=== PATIENT | female | born 1955 | race Caucasian/White ===

== ENCOUNTER 2021-09-28 18:10 | Inpatient (IN) | payer OTHER, MEDICARE, SELFPAY ==
[2021-09-28 17:36] VITALS: BP 145/81; PULSE 74; RESP 16; TEMP 37.1; O2SAT 96; BMI 43.6
[2021-09-28 18:03] VITALS: PULSE 68
--- NOTE | 2021-09-28 18:15 | HP.PCM.HOS_ITS ---
HPI - General General Date of Admission: 09/28/21 Date of Service: 09/28/21 Chief Complaint: Chest pain HPI Narrative RABIA BRISENO, is a 66 F who presents with several week history of intermittent chest pain. Chest pain is midsternal and then goes up and down her sternum. May radiate to her back as well. No diaphoresis but does feel hot when this happens. No shortness of breath. Patient presented to an outside hospital and she did receive nitroglycerin which did help alleviate her chest pain. Patient has never had chest pain like this before. Patient was transferred here for further cardiac evaluation [facility] Medical History (Updated 09/28/21 @ 18:[address] Lokesh Broussard, DO) Anxiety CPAP (continuous positive airway pressure) dependence Depression DVT (deep venous thrombosis) Factor V deficiency Former smoker GERD (gastroesophageal reflux disease) Migraines Mitral valve prolapse Sleep apnea Home Medications apixaban 5 mg tablet (Eliquis) 5 mg PO BID 09/28/21 [History Last Taken 09/28/21] calcium carbonate 600 mg-vitamin D3 5 mcg (200 unit) tablet 1 tab PO DAILY 09/28/21 [History Last Taken Unknown] carvedilol 3.125 mg tablet 3.125 mg PO BID 09/28/21 [History Last Taken 09/28/21] celecoxib 200 mg capsule (Celebrex) 200 mg PO DAILY 09/28/21 [History Last Taken 09/28/21] doxepin 150 mg capsule 150 mg PO QHS 09/28/21 [History Last Taken Unknown] multivitamin 1 tab PO DAILY 09/28/21 [History Last Taken Unknown] omeprazole 40 mg capsule,delayed release 40 mg PO DAILY 09/28/21 [History Last Taken 09/28/21] sertraline 50 mg tablet 50 mg PO DAILY 09/28/21 [History Last Taken 09/28/21] sucralfate 1 gram tablet 1 g PO BID PRN PRN Heartburn 09/28/21 [History Last Taken 09/28/21] tolterodine 4 mg capsule,extended release 24 hr 4 mg PO DAILY 09/28/21 [History Last Taken 09/28/21] Allergy/AdvReac Type Severity Reaction Status Date / Time bupropion [From Wellbutrin] Allergy Hives Verified 09/28/21 18:03 codeine Allergy Nausea Verified 09/28/21 18:03 moxifloxacin [From Avelox] Allergy Hives Verified 09/28/21 18:03 shrimp Allergy Hives Verified 09/28/21 18:03 Family History (Updated 09/28/21 @ 18:[address] Lokesh Broussard DO) Other CAD (coronary artery disease) Surgical History History of appendectomy History of cholecystectomy Social History Smoking Status: Former smoker [place] Narrative Has chronic right lower extremity edema due to history of DVT in that leg. All review of systems were negative except as mentioned above in the history of present illness and the other review of systems. Vital Signs Vital Signs Vital Signs: 09/28/21 17:36 09/28/21 18:03 Temperature 37.1 C Temperature Source Oral Pulse Rate 74 68 Respiratory Rate 16 Blood Pressure 145/81 H Blood Pressure Mean 102 Blood Pressure Source Monitor Blood Pressure Position Sitting Blood Pressure Location Right Arm Pulse Ox 96 Oxygen Delivery Method Room Air Weight Weight: 115.212 kg Body Mass Index (BMI) 43.6 Physical Exam Const alert and no apparent distress Resp normal respiratory effort, no retractions, no use of accessory muscles and clear to auscultation bilaterally Cardio regular rate, regular rhythm, S1 normal heart sound and S2 normal heart sound GI normal to inspection, nondistended, normoactive bowel sounds, soft to palpation, non-tender and non-distended Extremity Extremity Narrative: Trace right lower extremity edema Psych affect normal Results Lab / Micro Data Attestation: I reviewed the patient's lab results. Lab results narrative: At outside hospital: Troponin was negative, D-dimer was negative, INR was 1.1, chest x-ray results showed no consolidation, effusion, edema or pneumothorax. Heart size within normal limits. COVID-19 was negative. CBC showed white cells of 8.2, hemoglobin 11.8 platelets 197 CMP: Sodium 141, potassium 3.9, creatinine 0.74 BNP was 71 EKG Initial EKG: Attestation: I personally reviewed and interpreted this EKG as follows: Prior EKG tracings: available for review EKG Rhythm Intrepretation: Sinus Rhythm (Normal sinus rhythm with no acute process.) Follow-up EKG: Attestation: I personally reviewed and interpreted this EKG as follows: Prior EKG tracings: available for review EKG Rhythm Intrepretation: Sinus Rhythm (Normal sinus rhythm with no acute process.) Assessment & Plan Assessment/Plan (1) Chest pain: PLAN: Atypical but heart score is 5 Etiologies include cardiac versus musculoskeletal versus GI. Plan: * Will give her aspirin * Cycle troponins * stress test in the morning PLAN: Plan Chronic conditions * DVT/factor V Leiden deficiency: Continue with apixaban * Depression: Continue with doxepin and sertraline * GERD: Continue with omeprazole and sucralfate VTE prophylaxis: Not indicated as patient is already anticoagulated and this is observation. Case discussed with the patient's at bedside. Charges/Coding Visit Charges OBSV E&M: 30382 Initial observation care L2
[2021-09-28 18:16] VITALS: PULSE 66
[2021-09-28 19:00] VITALS: PULSE 75
--- NOTE | 2021-09-28 19:19 | EKG12_ITS ---
Test Reason : AM EKG Blood Pressure : / mmHG Vent. Rate : 060 BPM Atrial Rate : 060 BPM P-R Int : 148 ms QRS Dur : 082 ms QT Int : 424 ms P-R-T Axes : 047 -07 022 degrees QTc Int : 424 ms Normal sinus rhythm Normal ECG Confirmed by YOLETTE TEAGUE, PAMELA ([id number]), clinical editor YOSELYN ALLAN ([id number]) on 10/02/2021 1:03:15 PM Referred By: BRYCE Confirmed By:PAMELA DE LA VEGA MD
[2021-09-28 20:18] LABS: Troponin-I HS 16 pg/mL (3.0-54.0)
[2021-09-28] MEDS: Aspirin 81 MG TAB.CHEW 324 MG PO (20:59)
[2021-09-28 21:00] VITALS: BP 132/69; PULSE 67; RESP 12; TEMP 36.5; O2SAT 97
[2021-09-28] MEDS: DOXEPIN HCL 50 MG CAPSULE 150 MG PO (21:00)
[2021-09-28] MEDS: APIXABAN 5 MG TABLET PO (21:00)
[2021-09-28] MEDS: Carvedilol 3.125 MG TABLET PO (21:00)
[2021-09-28 22:09] LABS: Troponin-I HS 16 pg/mL (3.0-54.0)
[2021-09-29] VITALS (9 sets, daily range): BP systolic 113–138; BP diastolic 50–72; PULSE 58–71; RESP 16–20; TEMP 36.2–36.7; O2SAT 95–98
[2021-09-29 01:33] LABS: Troponin-I HS 16 pg/mL (3.0-54.0)
--- NOTE | 2021-09-29 05:55 | EKG12_ITS ---
Test Reason : cp Blood Pressure : / mmHG Vent. Rate : 067 BPM Atrial Rate : 067 BPM P-R Int : 138 ms QRS Dur : 088 ms QT Int : 404 ms P-R-T Axes : 109 184 132 degrees QTc Int : 426 ms Suspect arm lead reversal, interpretation assumes no reversal Possible Normal sinus rhythm Abnormal ECG Consider repeat ECG Confirmed by YOLETTE TEAGUE, PAMELA ([id number]), writer editor YOSELYN ALLAN ([id number]) on 10/02/2021 1:04:22 PM Referred By: Kian Confirmed By:PAMELA DE LA VEGA MD
[2021-09-29] MEDS: Aspirin E.C. 81 MG Tablet PO (06:23)
[2021-09-29] MEDS: APIXABAN 5 MG TABLET PO (10:29)
[2021-09-29] MEDS: Celecoxib 200 MG Capsule PO (10:29)
[2021-09-29] MEDS: Pantoprazole Sodium 40 MG Tablet PO (10:29)
[2021-09-29] MEDS: Tolterodine Tartrate 4 MG CAP.SA PO (10:29)
[2021-09-29] MEDS: Acetaminophen 325 MG Tablet 650 MG PO (10:29)
[2021-09-29] MEDS: Carvedilol 3.125 MG TABLET PO ×2 (10:29→21:21)
[2021-09-29] MEDS: Sertraline 50 MG Tablet PO (10:29)
--- NOTE | 2021-09-29 11:07 | STRESSREP_ITS ---
Stress Test Report Pharmacologic /Lexiscan myocardial perfusion stress test. Indication; 66-year-old patient who presented with several week history of intermittent chest pain Chest pain is midsternal radiating to the neck As well as to the back No other associated symptoms reported. Patient known to have history of mitral valve prolapse, migraine, GERD former smoker and had a history of factor V deficiency Also known to have history of COPD on CPAP. Based on clinical presentation patient underwent Lexiscan sestamibi myocardial fusion study. Stress protocol: Resting EKG demonstrates. Normal sinus rhythm. 0.4 mg of regadenoson was infused per usual protocol followed by rapid intravenous saline flush injection continuous EKG monitoring was performed. The maximum heart rate attained was 83 bpm which was 53% of maximum predicted heart . Stress EKG showed[, no significant change from the resting EKG, with maximum heart rate of 83 bpm. Arrhythmia: No arrhythmia demonstrated Symptoms: Patient had no symptoms of chest pain Blood pressure at rest: 134/78 mmHg blood pressure at the end of stress: 134/78 mmHg Myocardial perfusion protocol. 13.8 mCi ]of Technetium 99m Sestamibi was injected at rest. [ 0.4 mg ]of Regadenoson was infused per usual protocol peak infusion 42.2 mCi ]of Technetium 99m sestamibi was injected. Stress images were obtained stress and rest images were reconstructed and compared in the short axis vertical and horizontal long axis. Gated images were also obtained Perfusion SPECT analysis: Review of the images demonstrate reduced tracer uptake was noted in the anterior and apical region, small to moderate size Is consistent with reversible anteroapical ischemia. 66-year-old patient who presented with symptoms of intermittent chest pain, described as midsternal The gated ejection fraction is 80%. LV wall motion showed hyperdynamic left ventricle. Conclusion: Abnormal Lexiscan sestamibi myocardial fusion study with anteroapical small to moderate size reversible ischemia Hyperdynamic left ventricle No prior study to compare. Fidel Winchester MD,FACC,[facility]
--- NOTE | 2021-09-29 11:57 | PN.HOSP_ITS ---
Subjective Subjective No events overnight. No further chest pain. Objective Data Objective Data Vital Signs: Vital Signs Temp Pulse Resp BP Pulse Ox O2 Del Method 36.3 C L 66 16 137/65 H 98 Room Air 09/29/21 10:09/29/21 10:09/29/21 10:09/29/21 10:09/29/21 10:09/29/21 10:22 Oxygen Delivery Method Room Air Weight: 115.212 kg Body Mass Index (BMI) 43.6 Lab / Micro Data Labs: Laboratory Results - last 24 hr 09/28/21 19:25: Troponin I High Sens 16 09/28/21 21:20: Troponin I High Sens 16 09/29/21 01:00: Troponin I High Sens 16 Physical Exam Const alert and no apparent distress Resp normal respiratory effort, no retractions, no use of accessory muscles and clear to auscultation bilaterally Cardio regular rate, regular rhythm, S1 normal heart sound and S2 normal heart sound GI normal to inspection, nondistended, normoactive bowel sounds, soft to palpation and non-tender Assessment & Plan Assessment/Plan (1) Chest pain: PLAN: Stress test was abnormal. Discussed with Dr. Winchester and the plan will be to get a cardiac catheterization on the Plan: * Continue with aspirin * Cardiac catheterization on the * Check FLP in AM PLAN: Plan Chronic conditions * DVT/factor V Leiden deficiency: Continue with apixaban * Depression: Continue with doxepin and sertraline * GERD: Continue with omeprazole and sucralfate VTE prophylaxis: Not indicated as patient is already anticoagulated and this is observation. Case discussed with the patient's at bedside. Charges/Coding Visit Charges OBSV E&M: 93720 Subsequent observation care L2
--- NOTE | 2021-09-29 13:21 | CON.PCM.CA_ITS ---
Assessment & Plan Assessment/Plan (1) Stable angina: (2) Abnormal nuclear stress test: PLAN: 66-year-old patient who was admitted with symptoms of chest pain Patient was transferred from [place] with chest pain for evaluation he had [facility] Which she underwent a stress test Patient had family history of CAD, she is a former smoker Patient had a history of factor V deficiency with a DVT and she has been on Eliquis 5 mg twice daily. Cardiac care plan recommendations; 1. Patient has abnormal nuclear stress test with anteroapical small to moderate reversible ischemia And preserved LV systolic function 2. To hold Eliquis for at least 48-hour I discussed the need of further evaluation by cardiac cath as she had significant family history of CAD post parent had CAD and patient had recurrent episode of chest pain and a former smoker with multiple other medical problem risk factor V deficiency. 3. Echocardiogram to evaluate LV systolic function which can be set up on Friday. HPI Consult Data Date of Consult: 09/29/21 HPI Narrative Reason for Consultation: Stable angina with positive stress test HPI Narrative: RABIA BRISENO, is a 66 F who presents [facility] Medical History (Updated 09/29/21 @ 13:[address] Fidel Winchester MD) Anxiety CPAP (continuous positive airway pressure) dependence Depression DVT (deep venous thrombosis) Factor V deficiency Former smoker GERD (gastroesophageal reflux disease) Migraines Mitral valve prolapse Sleep apnea Home Medications apixaban 5 mg tablet (Eliquis) 5 mg PO BID 09/28/21 [History Last Taken 09/28/21] calcium carbonate 600 mg-vitamin D3 5 mcg (200 unit) tablet 1 tab PO DAILY 09/28/21 [History Last Taken Unknown] carvedilol 3.125 mg tablet 3.125 mg PO BID 09/28/21 [History Last Taken 09/28/21] celecoxib 200 mg capsule (Celebrex) 200 mg PO DAILY 09/28/21 [History Last Taken 09/28/21] doxepin 150 mg capsule 150 mg PO QHS 09/28/21 [History Last Taken Unknown] multivitamin 1 tab PO DAILY 09/28/21 [History Last Taken Unknown] omeprazole 40 mg capsule,delayed release 40 mg PO DAILY 09/28/21 [History Last Taken 09/28/21] sertraline 50 mg tablet 50 mg PO DAILY 09/28/21 [History Last Taken 09/28/21] sucralfate 1 gram tablet 1 g PO BID PRN PRN Heartburn 09/28/21 [History Last Taken 09/28/21] tolterodine 4 mg capsule,extended release 24 hr 4 mg PO DAILY 09/28/21 [History Last Taken 09/28/21] Allergy/AdvReac Type Severity Reaction Status Date / Time bupropion [From Wellbutrin] Allergy Hives Verified 09/28/21 18:03 codeine Allergy Nausea Verified 09/28/21 18:03 moxifloxacin [From Avelox] Allergy Hives Verified 09/28/21 18:03 shrimp Allergy Hives Verified 09/28/21 18:03 Family History (Updated 09/28/21 @ 18:[address] Lokesh Broussard DO) Other CAD (coronary artery disease) Surgical History History of appendectomy History of cholecystectomy Social History Smoking Status: Former smoker Physical Exam Narrative Patient seen and evaluated today at bedside , at bedside at time of evaluation She is alert orientated x3 She does not have any active chest pain Cardiac exam S1-S2 is regular Chest exam is clear to auscultation bilateral. Risk Stratification Risk Stratification Applicable: Yes Age >/= 65: Yes >/= 3 CAD Risk Factors (HTN, HLD, DM, family hx of CAD, or current smoker): Yes Aspirin Use in the Past 7 Days: Yes Severe Angina (>/= episodes in 24 hours): No EKG ST Changes >/= 0.5mm: No Positive Cardiac Marker: No TERENCE Risk Stratification Score: 3 TERENCE % Risk: 13% Risk Objective Data Vital Signs: Vital Signs Temp Pulse Resp BP Pulse Ox O2 Del Method 97.3 F L 66 16 137/65 H 98 Room Air 09/29/21 10:09/29/21 10:22 09/29/21 10:22 09/29/21 10:22 09/29/21 10:22 09/29/21 10:22 Oxygen Delivery Method Room Air Weight: 254 lb Body Mass Index (BMI) 43.6 Lab / Micro Data Labs: Laboratory Results - last 24 hr 09/28/21 19:25: Troponin I High Sens 16 09/28/21 21:20: Troponin I High Sens 16 09/29/21 01:00: Troponin I High Sens 16 Cardiology Labs/Tests Rhythm: EKG: Normal sinus rhythm No ST?T abnormalities noted. ECHO: Stress Test: Abnormal stress test with anteroapical small to moderate reversible ischemia LV function within normal
--- NOTE | 2021-09-29 15:58 | CASEMGMT ---
HERON CM in to discuss HUNT form with patient. RN CM explained HUNT form, patient voiced understanding. Pt signed form and filed in chart. Pt provided with a copy of signed HUNT form. Patient had no further questions or concerns at this time.
[2021-09-29] MEDS: DOXEPIN HCL 50 MG CAPSULE 150 MG PO (21:21)
[2021-09-30] VITALS (9 sets, daily range): BP systolic 130–140; BP diastolic 67–71; PULSE 61–76; RESP 14–20; TEMP 36.4–37.1; O2SAT 94–96
[2021-09-30 07:19] LABS: Cholesterol 186 mg/dL (200); High Density Lipoprotein 62 mg/dL; Triglycerides 109 mg/dL; Very Low Density Lipoprotein 22 mg/dL (5-40)
--- NOTE | 2021-09-30 08:22 | PN.HOSP_ITS ---
Subjective Subjective No further chest pain. Objective Data Objective Data Vital Signs: Vital Signs Temp Pulse Resp BP Pulse Ox O2 Del Method 36.4 C L 61 20 H 130/71 H 95 Room Air 09/30/21 03:16 09/30/21 03:16 09/30/21 03:16 09/30/21 03:16 09/30/21 03:16 09/30/21 03:17 Oxygen Delivery Method Room Air Weight: 115.212 kg Body Mass Index (BMI) 43.6 Intake & Output: Intake and Output for Last 24 Hours 09/28/21 09/29/21 09/30/21 23:59 23:59 23:59 Intake Total 375 / 375 Balance 375 / 375 Lab / Micro Data Labs: Laboratory Results - last 24 hr 09/30/21 06:03: Triglycerides 109, Cholesterol 186, LDL Cholesterol 102, VLDL Cholesterol 22, HDL Cholesterol 62 Physical Exam Const alert and no apparent distress Resp normal respiratory effort, no retractions, no use of accessory muscles and clear to auscultation bilaterally Cardio regular rate, regular rhythm, S1 normal heart sound and S2 normal heart sound GI normal to inspection, nondistended, normoactive bowel sounds and soft to palpation Neuro Sensorium / Orientation: awake and alert Assessment & Plan Assessment/Plan (1) Chest pain: PLAN: Stress test was abnormal. Discussed with Dr. Winchester and the plan will be to get a cardiac catheterization on the FLP unremarkable Plan: * Continue with aspirin * Cardiac catheterization on the PLAN: Plan Chronic conditions * DVT/factor V Leiden deficiency: Continue with apixaban after cardiac catheterization * Depression: Continue with doxepin and sertraline * GERD: Continue with omeprazole and sucralfate VTE prophylaxis: SCDs as anticoagulation being held for cardiac catheterization. Charges/Coding Visit Charges Inpatient E&M: 95241 Subs Hosp L2
[2021-09-30] MEDS: Celecoxib 200 MG Capsule PO (08:45)
[2021-09-30] MEDS: Carvedilol 3.125 MG TABLET PO ×2 (08:45→20:52)
[2021-09-30] MEDS: Sertraline 50 MG Tablet PO (08:46)
[2021-09-30] MEDS: Tolterodine Tartrate 4 MG CAP.SA PO (08:46)
[2021-09-30] MEDS: Pantoprazole Sodium 40 MG Tablet PO (08:46)
[2021-09-30] MEDS: Aspirin E.C. 81 MG Tablet PO (08:54)
--- NOTE | 2021-09-30 13:00 | PCM.PN.CARD ---
Subjective Subjective No symptoms of chest pain reported today Objective Data environmental monitoring specialist showed underlying normal sinus Cardiac exam essentially normal Vital Signs: Vital Signs Temp Pulse Resp BP Pulse Ox O2 Del Method 97.9 F 72 16 133/68 H 95 Room Air 09/30/21 08:39 09/30/21 11:09 09/30/21 08:39 09/30/21 08:39 09/30/21 08:39 09/30/21 08:39 Oxygen Delivery Method Room Air Weight: 254 lb Body Mass Index (BMI) 43.6 Intake & Output: Intake and Output for Last 24 Hours 09/28/21 09/29/21 09/30/21 23:59 23:59 23:59 Intake Total 925 / 925 Balance 925 / 925 Lab / Micro Data Labs: Laboratory Results - last 24 hr 09/30/21 06:03: Triglycerides 109, Cholesterol 186, LDL Cholesterol 102, VLDL Cholesterol 22, HDL Cholesterol 62 Cardiology Labs/Tests 09/30/21 06:03: Triglycerides 109, Cholesterol 186, LDL Cholesterol 102, VLDL Cholesterol 22, HDL Cholesterol 62 Rhythm: EKG: ECHO: Stress Test: Cardiac Cath: PCI: CT Surgery: Holter monitor: EPS: PPM: CXR: Chest CT Scan: Assessment & Plan Assessment/Plan (1) Stable angina: (2) Chest pain: (3) Abnormal nuclear stress test: PLAN: 66-year-old patient who referred from [place] with a chest pain Underwent evaluation by a series of cardiac biomarkers high sensitive troponin negative Symptoms of chest pain resolved at rest environmental monitoring specialist showed normal sinus rhythm cardiac exam essentially normal Patient has Lexiscan sestamibi which is abnormal Cardiac care plan and recommendations; 1. LV function preserved with abnormal nuclear stress test Anteroapical reversible myocardial ischemia a small to moderate size 2. Continue medical treatment 3. I explained in detail the need to evaluate further with left heart catheterization Risk and benefit, explained in detail to the patient she understand and will proceed tomorrow
[2021-09-30] MEDS: DOXEPIN HCL 50 MG CAPSULE 150 MG PO (20:52)
[2021-10-01] VITALS (14 sets, daily range): BP systolic 115–143; BP diastolic 58–80; PULSE 56–88; RESP 16–18; TEMP 36.3–36.5; O2SAT 93–98
[2021-10-01] MEDS: Aspirin E.C. 81 MG Tablet PO (06:35)
[2021-10-01] MEDS: Carvedilol 3.125 MG TABLET PO (06:35)
--- NOTE | 2021-10-01 07:53 | PN.HOSP_ITS ---
Objective Data Objective Data Vital Signs: Vital Signs Temp Pulse Resp BP Pulse Ox O2 Del Method 97.7 F L 61 18 118/80 98 Room Air 10/01/21 06:32 10/01/21 06:59 10/01/21 06:32 10/01/21 06:32 10/01/21 06:32 10/01/21 06:32 Oxygen Delivery Method Room Air Weight: 254 lb Body Mass Index (BMI) 43.6 Intake & Output: Intake and Output for Last 24 Hours 09/29/21 09/30/21 10/01/21 23:59 23:59 23:59 Intake Total 2124 50 / 50 Balance 2124 50 / 50 Assessment & Plan Assessment/Plan (1) Chest pain: PLAN: Stress test was abnormal. Discussed with Dr. Winchester and the plan will be to get a cardiac catheterization on the FLP unremarkable Plan: * Continue with aspirin * Cardiac catheterization on the PLAN: Plan Chronic conditions * DVT/factor V Leiden deficiency: Continue with apixaban after cardiac catheterization * Depression: Continue with doxepin and sertraline * GERD: Continue with omeprazole and sucralfate VTE prophylaxis: SCDs as anticoagulation being held for cardiac catheterization.
--- NOTE | 2021-10-01 09:19 | CL.D_ITS ---
Patient Name: RABIA BRISENO Study Date: 10/01/2021 Performing: Sree Arrieta MD Ht: 64 inches 163 cm : 1955 Wt: 253.9 lbs 115 kg Age: 66 Gender: female BSA: 2.17 PROCEDURE(S) PERFORMED DC01-(79112)LHC/COR/LV CLINICAL PROFILE AND INDICATIONS Indications: Worsening Angina, Suspected CAD Heart Failure: None Stress/Imaging Date: 09/29/2021tress Test with SPECT MPI: Positive Intermediate Risk Angina Classification Anginal Classification w/in 2 Weeks: CCS III CAD Presentations: Unstable angina. CONCLUSIONS Normal coronary arteries RECOMMENDATIONS Risk factor modification Medical therapy DESCRIPTION OF PROCEDURE The patient arrived to the procedure lab. The risks and benefits of the procedure as well as a full d escription of our services here and current unavailability of surgical backup were fully explained to the patient and/or their significant other prior to the catheterization. The Timeout was completed, verifying the correct patient and procedure. The patient's procedural site was prepped and draped in the usual fashion. Local anesthetic was given subcutaneously to right radial region with Lidocaine 2% . Using a modified Seldinger technique, arterial access was obtained via the right radial artery, a 6 Fr sheath was inserted. Left Coronary Artery selective angiography was performed in multiple views u sing a 5 Fr. 4.0 [place] catheter. Right Coronary Artery selective angiography was then performed in mu ltiple views using a 5 Fr. JR 4 catheter.The arterial sheath was pulled and a TR Band was applied for hemostasis CORONARY ANGIOGRAPHY DOMINANCE: Right Dominant LEFT HEART ASSESSMENT Left Ventricular Ejection Fraction: Not assessed LEFT MAIN: Angiographically normal LEFT ANTERIOR DESCENDING ARTERY: Angiographically normal CIRCUMFLEX ARTERY: Angiographically normal RIGHT CORONARY ARTERY: Angiographically normal COMPLICATIONS No Complications PROCEDURE MEDICATIONS Fentanyl 50 mcg IV Versed 1 mg IV Fentanyl 50 mcg IV Versed 1 mg IV Oxygen: 2 L/min via nasal cannula Benadryl 25 mg IV @ 10/01/2021 08:51:16 Heparin given IA 10/01/2021 08:52:11 Nitro 100 mcg IC 10/01/2021 08:57:11 Solu-medrol 125 mg IV 10/01/2021 08:51:26 SUMMARY OF HEMODYNAMIC DATA Time AIR REST ECG 08:09:46 Art 161/68 (101) 08:27:48 AO 116/65 (87) SA 08:52:51 Signed By Sree Arrieta MD On 10/01/2021 09:18:18 Sree Arrieta MD
--- NOTE | 2021-10-01 09:22 | PN.CARD_ITS ---
Subjective Subjective The patient is awake and alert. She was denying any ongoing chest discomfort. She subsequently proceeded to further evaluation with diagnostic cardiac catheterization. That procedure is now complete. Objective Data Vital Signs: Vital Signs Temp Pulse Resp BP Pulse Ox O2 Del Method 97.7 F L 61 18 118/80 98 Room Air 10/01/21 06:32 10/01/21 06:59 10/01/21 06:32 10/01/21 06:32 10/01/21 06:32 10/01/21 07:35 Oxygen Delivery Method Room Air Weight: 254 lb Body Mass Index (BMI) 43.6 Intake & Output: Intake and Output for Last 24 Hours 09/29/21 09/30/21 10/01/21 23:59 23:59 23:59 Intake Total 2124 50 Balance 2124 Cardiology Labs/Tests Rhythm: Sinus rhythm ECHO: Pending Cardiac Cath: CONCLUSIONS Normal coronary arteries RECOMMENDATIONS Risk factor modification Medical therapy DESCRIPTION OF? PROCEDURE The patient arrived to the procedure lab. The risks and benefits of the procedure as well as a full description of our services here and current unavailability of surgical backup were fully explained to the patient and/or their significant other prior to the catheterization. The Timeout was completed, verifying the correct patient and procedure. The patient's procedural site was prepped and draped in the usual fashion. Local anesthetic was given subcutaneously to right radial region with Lidocaine 2%. Using a modified Seldinger technique, arterial access was obtained via the right radial artery, a 6Fr sheath was inserted.? Left Coronary Artery selective angiography was performed in multiple views using a 5 Fr. 4.0 Rowdy catheter. Right Coronary Artery selective angiography was then performed in multiple views using a 5 Fr. JR 4 catheter.The arterial sheath was pulled and a TR Band was applied for hemostasis CORONARY ANGIOGRAPHY DOMINANCE:? Right Dominant LEFT HEART ASSESSMENT Left Ventricular Ejection Fraction: Not assessed LEFT MAIN: Angiographically normal LEFT ANTERIOR DESCENDING ARTERY: Angiographically normal CIRCUMFLEX ARTERY: Angiographically normal RIGHT CORONARY ARTERY: Angiographically normal Physical Exam Const alert, oriented x3, no apparent distress and healthy appearing Orientation / Consciousness: awake HEENT normocephalic, head/scalp atraumatic and hearing grossly normal bilaterally Eyes PERRL, EOMs intact bilaterally, conjunctivae normal and no scleral icterus Neck full ROM, supple and no JVD Carotids: normal carotid upstroke Resp normal respiratory effort and clear to auscultation bilaterally Cardio regular rate, regular rhythm, S1 normal heart sound and S2 normal heart sound Palpation: normal PMI Rate: regular rate Rhythm: regular rhythm Heart Sounds: S1 normal and S2 normal GI normal to inspection, nondistended, normoactive bowel sounds Extremity no pedal edema Skin Skin Narrative: Status post diagnostic cardiac catheterization she was noted to have a right forearm mild erythematous appearing rash. Psych mental status grossly normal Assessment & Plan Assessment/Plan (1) Chest pain: PLAN: The patient has undergone further evaluation with chest pain studies. This has included cardiac enzyme, ECG, and now diagnostic cardiac catheterization. The patient's cardiac catheterization has demonstrated angiographically normal- appearing coronary arteries. Thus, it appears her stress test is a false posi tive. An echocardiogram is pending to evaluate the patient's valvular anatomy and physiology on her left ventricular size, wall motion, and systolic function. If the patient's echocardiogram is unremarkable for any definitive etiology of her chest discomfort then hopefully her chest discomfort can be considered noncardiovascular in etiology and she can continue risk factor modification and medical therapy as deemed appropriate and pursue a noncardiac evaluation of her chest discomfort. (2) Mitral valve prolapse: PLAN: There is a history of mitral valve prolapse. Again she is pending further evaluation with a transthoracic echocardiogram. 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 She has been on anticoagulant therapy. Barring unforeseen findings she should be able to resume her anticoagulant therapy tomorrow as long as her cardiac catheterization site is stable. Addt'l Comments The patient's case has been previously discussed and reviewed with Dr. Gamez. The patient denies symptoms considered classic for angina pectoris, CHF / pulmonary edema (with respect to orthopnea / PND), ongoing palpitations, or near syncope / syncope. Procedure Criteria Type of Procedure Procedure Type: Elective Elective Risks - COVID COVID Risk Discussion: The surgeon/proceduralist and patient have discussed in detail the risk of exposure to and/or potential harm posed by the COVID-19 virus with having a surgery/procedure at this time versus the risk of delaying the surgery/procedure. It is not possible to know either the risk of delaying the surgery or procedure or chance of getting an infection with perfect accuracy, but a joint decision was made between the patient and the surgeon/proceduralist to proceed at this time with the scheduled surgery/procedure as indicated on the consent form.
[2021-10-01] MEDS: Celecoxib 200 MG Capsule PO (09:28)
[2021-10-01] MEDS: Pantoprazole Sodium 40 MG Tablet PO (09:28)
[2021-10-01] MEDS: 0.9% Normal Saline 1,000 ML 75 ML IV (09:28)
[2021-10-01] MEDS: Sertraline 50 MG Tablet PO (09:28)
[2021-10-01] MEDS: Tolterodine Tartrate 4 MG CAP.SA PO (09:28)
[2021-10-01 10:01] LABS: Absolute Lymphocyte Count 1.54 X10^3/uL (0.83-4.51); Absolute Neutrophil Count 4.8 X10^3/uL (2.0-7.7); Basophil# 0.04 X10^3/uL; Basophil% 0.6 % (0-1); Eosinophil# 0.25 X10^3/uL; Eosinophils% 3.6 % (0-5); Hematocrit 37.9 % (37-47); Hemoglobin 12.5 g/dL (12.0-15.0); Lymphocyte # 1.54 X10^3/ul (0.83-4.51); Lymphocyte % 22.2 % (19-41); Mean Corpuscular Hgb 28.3 pg (27.0-32.0); Mean Corpuscular Volume 85.7 fL (81-99); Mean Platelet Vol. 10.3 fl (6.2-12.0); Monocyte# 0.31 X10^3/uL; Monocyte% 4.5 % (0-10); NRBC Flagged by Analyzer 0 % (0-5); Neutrophil # 4.76 X10^3/uL (2.7-7.7); Neutrophil % 68.5 % (47-70); Platelet Count 204 K/mm3 (150-450); RBC Distribution Width CV 13.7 % (11.6-14.6); RBC Distribution Width SD 42.6 fl (35.1-43.9); Red Blood Count 4.42 M/mm3 (4.2-5.4); White Blood Count 6.9 K/mm3 (4.4-11.0)
[2021-10-01 10:12] LABS: Anion Gap 3 (5-15); BUN 20 mg/dL (7-18); BUN/Creat Ratio 28.3 RATIO (10-20); Calcium,Total 8.8 mg/dL (8.5-10.1); Chloride 106 mmol/L (98-107); Creatinine, Serum 0.71 mg/dL (0.55-1.02); EST Glomerular Filtration Rate 88 mL/min (>60); Est Glom Filt Rate - Afr Amer 106 mL/min (>60); Estimated Creatinine Clearance 47.79 ml/min; Glucose 84 mg/dL (74-106); Sodium Level 137 mmol/L (136-145)
--- NOTE | 2021-10-01 11:20 | CASEMGMT ---
RN CM Face to Face with patient for initial transition planning/care coordination assessment. RN CM introduced self and role at [facility]. Patient lying in bed, alert and oriented at bedside. Patient willing to participate in assessment and is able to answer all questions appropriately. Care providers, pharmacy, and demographics verified. Patient wishes to discharge home, denies need for home health at this time. Patient states she has no further needs or concerns at this time. CM to follow for discharge planning needs that may arise. PCP: Jena Specialists: Rock bilingual administrative assistant Preferred Pharmacy: [facility] Insurance: [employer] Prescription Benefit: yes Living Will/HPOA: none LNOK: Living Arrangements: Patient lives with in a single story home with 4 steps and railing to enter the home. Patient states she is independent at home. Transportation: self, DME/HHC: Patient states she has shower chair and cpap at home. No previous HHC or SNF. Disposition Plan: Patient to discharge home with family support and follow-up plans in place. Shahida FAROOQ, RN, CM
--- NOTE | 2021-10-01 13:46 | ECHOD_ITS ---
Reason For Study: Chest Pain Procedure This was a 2D Doppler, Color Flow transthoracic echocardiogram. Exam performed portable in patient room. Left Ventricle Normal LV size. Left ventricular systolic function is normal. The estimated ejection fraction is 65 %. No evidence for diastolic dysfunction. No regional wall motion abnormalities noted. Right Ventricle Normal RV size. Normal systolic function. Atria The left atrium is mildly enlarged. Normal right atrium. No doppler evidence for ASD. Mitral Valve There is mild mitral annular calcification. Extension of the mitral annular calcification onto the base of the posterior mitral valve leaflet. Trivial eccentric mitral valve insufficiency. Tricuspid Valve Normal tricuspid valve. Trivial tricuspid valve insufficiency. Right ventricular systolic pressure estimated to be 33 mmHg. Aortic Valve Trisinus/trileaflet aortic valve. Normal aortic valve. Pulmonic Valve The pulmonic valve is not well visualized. Great Vessels Normal sized aortic root. Pericardium/Pleural No pericardial effusion. MMode/2D Measurements & Calculations LVIDd: 4.7 cm IVSd: 1.2 cm Ao root diam: 2.6 cm LVIDs: 3.0 cm LVPWd: 1.2 cm RVDd: 4.1 cm FS: 35.1 % LAV(MOD-bp): 56.7 ml LVAd ap4: 24.8 cm2 SV(MOD-sp4): 51.3 ml LAV(MOD-bp) Indexed: 26.4 ml/m2 LVLd ap4: 6.7 cm LAV(MOD-sp2): 65.9 ml EDV(MOD-sp4): 75.9 ml LAV(MOD-sp4): 48.2 ml EDV(sp4-el): 78.2 ml LVAs ap4: 12.7 cm2 LVLs ap4: 5.5 cm ESV(MOD-sp4): 24.6 ml ESV(sp4-el): 24.8 ml EF(MOD-sp4): 67.6 % EF(sp4-el): 68.3 % SV(sp4-el): 53.4 ml LA A4 area: 18.1 cm2 LA dimension(2D): 3.8 cm RA A4 area: 11.6 cm2 Doppler Measurements & Calculations MV E max saud: 70.7 cm/sec Lat Peak E' Saud: 6.9 cm/sec Med Peak E' Saud: 6.1 cm/sec MV A max saud: 89.3 cm/sec E/E' lat: 10.3 E/E' med: 11.6 MV E/A: 0.79 Ao V2 max: 175.2 cm/sec LV V1 max: 152.5 cm/sec PA V2 max: 100.9 cm/sec Ao max P.3 mmHg LV V1 max P.3 mmHg Ao V2 mean: 116.1 cm/sec Ao mean P.1 mmHg Ao V2 VTI: 36.5 cm TR max saud: 272.8 cm/sec TR max P.8 mmHg ECHO/Echo Complete Interpretation Summary Left ventricular systolic function is normal. The estimated ejection fraction is 65 %. The left atrium is mildly enlarged. There is mild mitral annular calcification. Extension of the mitral annular calcification onto the base of the posterior mi tral valve leaflet. Trivial eccentric mitral valve insufficiency. Trivial tricuspid valve insufficiency. Right ventricular systolic pressure estimated to be 33 mmHg. No evidence for diastolic dysfunction. Ordering Physician: Jing Edwards Referring Physician: Guillaume Bella Performed By: Lourdes Rosa, ADY, RVT
--- NOTE | 2021-10-01 16:25 | DCINST_ITS ---
Discharge Instructions Diet Discharge Diet: Low fat / Low cholesterol Activity May shower in (days): 1 Dressing / Incision Call your doctor if your incision/area has: Continuous Slow Oozing, Sudden Increased Bleeding, Increased Pain/ Swelling, Increased Redness, Foul Smelling Discharge and Swelling at the incision site Call your doctor if you observe: Shortness of breath, Chest pain and Increased palpitations (irregular heartbeat) Remove Dressing in: 1 day Follow Up Care Test Results: Test results from this visit will be discussed in further detail at your follow- up appointment, if applicable. Discharge Plan Admission Admit Date/Time: 09/29/21 13:21 Primary Reason for Your Visit: Chest Pain Attending Provider: Fidel Gamez Primary Care Provider: Guillaume Bella Consulting Providers: Nehemias Bran ; Fidel Winchester ; Lokesh Broussard Discharge Orders/Prescriptions Prescriptions: New aspirin 81 mg Tablet,Delayed Release (Dr/Ec) 81 mg PO BREAKFAST 30 Days Qty: 30 0RF Continued multivitamin Tablet 1 tab PO DAILY celecoxib [Celebrex] 200 mg Capsule 200 mg PO DAILY tolterodine 4 mg Capsule,Extended Release 24hr 4 mg PO DAILY sucralfate 1 gram Tablet 1 g PO BID PRN PRN (Reason: Heartburn) calcium carbonate-vitamin D3 600 mg-5 mcg (200 unit) Tablet 1 tab PO DAILY omeprazole 40 mg Capsule,Delayed Release(Dr/Ec) 40 mg PO DAILY carvedilol 3.125 mg Tablet 3.125 mg PO BID Rx Instructions: must administer with a meal/food sertraline 50 mg Tablet 50 mg PO DAILY doxepin 150 mg Capsule 150 mg PO QHS Held Eliquis 5 mg Tablet 5 mg PO BID Hold Instructions: Resume on 10/02/21. Referrals / Follow Up: Guillaume Bella MD [Primary Care Provider] - Within 2 Weeks Disposition Disposition (needs filled in before D/C Order can be placed): Home, Self Care
--- NOTE | 2021-10-01 16:31 | PCM.DC.SUM ---
Documented by User: INDERJIT Baron 10/01/21 17:31 Providers Date of Admission: 09/29/21 Date of Discharge: 10/01/21 Primary Care Physician: Dr. Guillaume Bella MD Consultations 09/29/21 11:56 Consult: Cardiology Routine Consulting Provider: Fidel Winchester Reason for Consult: abnormal stress test EMERGENT Consult: No MD Notified: Yes Date Notified: 09/29/21 Time Notified: 11:56 Method of Notification: Verbal Reason For Visit: CHEST PAIN Diagnosis Discharge Diagnosis (1) Chest pain: Status: Acute Code(s): R07.9 - Chest pain, unspecified (2) Mitral valve prolapse: Status: Acute Code(s): I34.1 - Nonrheumatic mitral (valve) prolapse (3) Factor V deficiency: Status: Acute Code(s): D68.2 - Hereditary deficiency of other clotting factors Medications at Discharge Home Medications apixaban 5 mg tablet (Eliquis) 5 mg PO BID 09/28/21 calcium carbonate 600 mg-vitamin D3 5 mcg (200 unit) tablet 1 tab PO DAILY 09/28/21 carvedilol 3.125 mg tablet 3.125 mg PO BID 09/28/21 celecoxib 200 mg capsule (Celebrex) 200 mg PO DAILY 09/28/21 doxepin 150 mg capsule 150 mg PO QHS 09/28/21 multivitamin 1 tab PO DAILY 09/28/21 omeprazole 40 mg capsule,delayed release 40 mg PO DAILY 09/28/21 sertraline 50 mg tablet 50 mg PO DAILY 09/28/21 sucralfate 1 gram tablet 1 g PO BID PRN PRN Heartburn 09/28/21 tolterodine 4 mg capsule,extended release 24 hr 4 mg PO DAILY 09/28/21 aspirin 81 mg tablet,delayed release 81 mg PO BREAKFAST 30 days #30 tabs 10/01/21 Hospital Course Operations None Procedures 2-D Echocardiogram, Cardiac catheterization and Stress test Summary of Care Provided Minutes Spent on Discharge: 35 Hospital Course: Patient is a 66-year-old female who initially presented with a history of intermittent chest pain over the past 2 to 3 weeks. Patient states that it is midsternal and radiates to her back. Patient underwent stress test which was abnormal and subsequently underwent cardiac catheterization which was normal. Echocardiogram demonstrates EF 65%. Patient will be sent home with instructions to add aspirin to her daily regimen. Eliquis may be restarted on 10/02/2021. Patient should follow-up with PCP in the next 1 to 2 weeks. Physical Exam Const alert, oriented x3 and no apparent distress General Appearance: cooperative HEENT normocephalic and head/scalp atraumatic Eyes conjunctivae normal and no scleral icterus Neck no lymphadenopathy and supple General: trachea midline Lymph Lymphatic: no lymphadenopathy noted Resp normal respiratory effort, normal air movement and clear to auscultation bilaterally Cardio regular rate, regular rhythm, S1 normal heart sound, S2 normal heart sound and peripheral pulses 2+ throughout GI normal to inspection, nondistended, normoactive bowel sounds, soft to palpation and non-tender Extremity normal capillary refill and no clubbing, cyanosis or edema Skin skin turgor normal Neuro no focal motor deficits and no sensory deficits noted Speech: speech normal Gait (Neuro): normal gait Psych affect normal Appearance: appropriate Weight / BMI Weight Weight: 254 lb Body Mass Index (BMI) 43.6 ABG / Lab / Microbiology Data Result Diagrams: 10/01/21 09:45 10/01/21 09:45 Laboratory: Laboratory Results - last 24 hr 10/01/21 09:45: WBC 6.9, RBC 4.42, Hgb 12.5, Hct 37.9, MCV 85.7, MCH 28.3, MCHC 33.0, RDW Std Deviation 42.6, RDW Coeff of Ana Laura 13.7, Plt Count 204, MPV 10.3, Immature Gran % (Auto) 0.600, Neut % (Auto) 68.5, Lymph % (Auto) 22.2, [place] % (Auto) 4.5, Eos % (Auto) 3.6, Baso % (Auto) 0.6, Absolute Neuts (auto) 4.8, Absolute Lymphs (auto) 1.54, Nucleated RBC % 0 10/01/21 09:45: Sodium 137, Potassium 4.0, Chloride 106, Carbon Dioxide 28.0, Anion Gap 3 L, BUN 20 H, Creatinine 0.71, Estim Creat Clear Calc 47.79, Est GFR (MDRD) Af Amer 106, Est GFR (MDRD) Non-Af 88, BUN/Creatinine Ratio 28.3 H, Glucose 84, Calcium 8.8 D/C Instructions Discharge Diet: Low fat / Low cholesterol May shower in (days): 1 Call your doctor if your incision/area has: Continuous Slow Oozing, Sudden Increased Bleeding, Increased Pain/ Swelling, Increased Redness, Foul Smelling Discharge and Swelling at the incision site Call your doctor if you observe: Shortness of breath, Chest pain and Increased palpitations (irregular heartbeat) Meaningful Use Info Meaningful Use Diagnoses (Choose all that apply): None applicable Discharge Plan Admission Admit Date/Time: 09/29/21 13:21 Primary Reason for Your Visit: Chest Pain Attending Provider: Fidel Gamez Primary Care Provider: Guillaume Bella Consulting Providers: Nehemias Bran ; Fidel Winchester ; Lokesh Broussard Instructions Patient Instructions: Cardiac Catheterization Dc, Cardiac Cath Transradial Discharge Orders/Prescriptions Prescriptions: New aspirin 81 mg Tablet,Delayed Release (Dr/Ec) 81 mg PO BREAKFAST 30 Days Qty: 30 0RF Continued multivitamin Tablet 1 tab PO DAILY celecoxib [Celebrex] 200 mg Capsule 200 mg PO DAILY tolterodine 4 mg Capsule,Extended Release 24hr 4 mg PO DAILY sucralfate 1 gram Tablet 1 g PO BID PRN PRN (Reason: Heartburn) calcium carbonate-vitamin D3 600 mg-5 mcg (200 unit) Tablet 1 tab PO DAILY omeprazole 40 mg Capsule,Delayed Release(Dr/Ec) 40 mg PO DAILY carvedilol 3.125 mg Tablet 3.125 mg PO BID Rx Instructions: must administer with a meal/food sertraline 50 mg Tablet 50 mg PO DAILY doxepin 150 mg Capsule 150 mg PO QHS Held Eliquis 5 mg Tablet 5 mg PO BID Hold Instructions: Resume on 10/02/21. Referrals / Follow Up: Guillaume Bella MD [Primary Care Provider] - Within 2 Weeks Sree Arrieta MD [Med Staff - Active Staff] - Within 2 Weeks Disposition Disposition (needs filled in before D/C Order can be placed): Home, Self Care Documented by User: Dr. Fidel Gamez MD 10/02/21 07:20 Providers Date of Admission: 09/29/21 Reason For Visit: CHEST PAIN Diagnosis Discharge Diagnosis (1) Chest pain: Status: Acute Code(s): R07.9 - Chest pain, unspecified (2) Mitral valve prolapse: Status: Acute Code(s): I34.1 - Nonrheumatic mitral (valve) prolapse (3) Factor V deficiency: Status: Acute Code(s): D68.2 - Hereditary deficiency of other clotting factors Medications at Discharge Home Medications apixaban 5 mg tablet (Eliquis) 5 mg PO BID 09/28/21 calcium carbonate 600 mg-vitamin D3 5 mcg (200 unit) tablet 1 tab PO DAILY 09/28/21 carvedilol 3.125 mg tablet 3.125 mg PO BID 09/28/21 celecoxib 200 mg capsule (Celebrex) 200 mg PO DAILY 09/28/21 doxepin 150 mg capsule 150 mg PO QHS 09/28/21 multivitamin 1 tab PO DAILY 09/28/21 omeprazole 40 mg capsule,delayed release 40 mg PO DAILY 09/28/21 sertraline 50 mg tablet 50 mg PO DAILY 09/28/21 sucralfate 1 gram tablet 1 g PO BID PRN PRN Heartburn 09/28/21 tolterodine 4 mg capsule,extended release 24 hr 4 mg PO DAILY 09/28/21 aspirin 81 mg tablet,delayed release 81 mg PO BREAKFAST 30 days #30 tabs 10/01/21 Hospital Course Summary of Care Provided Hospital Course: Patient is a 66-year-old female who initially presented with a history of intermittent chest pain over the past 2 to 3 weeks. Patient states that it is midsternal and radiates to her back. Patient underwent stress test which was abnormal and subsequently underwent cardiac catheterization which was normal. Echocardiogram demonstrates EF 65%. Patient will be sent home with instructions to add aspirin to her daily regimen. Eliquis may be restarted on 10/02/2021. Patient should follow-up with PCP in the next 1 to 2 weeks. This patient was seen in conjunction with SAMPSON Ch. I have independently interviewed and examined the patient and reviewed pertinent history, examination findings, laboratory and plan of management. I have reviewed the note and agree with the documented findings with the few additional points. In brief, patient is 66-year-old female was admitted with intermittent chest pain from outside hospital. Chest pain midsternal with radiation to back. Not associated with shortness of breath or diaphoresis serial troponin enzymes were negative. conveyor monitor shows sinus rhythm. Stress test was done reported small to moderate size reversible ischemia in the anteroapical region. Hyperdynamic left ventricle. Faculty Support Coordinator Dr. Winchester was consulted. Patient had cardiac cath reported normal coronary arteries. Echo EF 65%. Fasting profile within normal limit. Patient was sent home with baby aspirin. Patient has history of DVT factor V Leiden deficiency and is on Eliquis. Patient already on Eliquis which was on hold for cardiac cath resume. Other comorbidities include GERD and depression: Home medication reconciliation done. Discharge medication reconciliation done. Discharge follow-up instructions completed. Discharge process discussed with the patient and all questions were answered to patient's satisfaction. Total time spent, exact 35 minutes on discharge meds reconciliation, examination, coordination of care with nurses and ancillary staff, review of imaging and blood test and discussion with the patient on follow-up instructions. I have discussed my assessment with Jing EMERGENCY DISPATCH OPERATOR and orders have been reviewed. Physical Exam Narrative Seen and examined. Patient was admitted with chest pain. Stress test was abnormal. Cardiac cath and echo was done. Patient did not have chest pain. Cardiac cath was done through the right radial artery access. Physical exam General: Alert, Oriented x3, Cooperative HEENT: Atraumatic, PERRLA, EOMI, Normocephalic Oral: No Gingival or Mucosal Lesions/ Ulcerations Neck: Supple, No JVD, Negative Carotid Bruits Lungs: Air entry diminished in bilateral lung bases. No crepitation/rhonchi Cardiovascular: Regular rate, Regular Rhythm, Normal S1, Normal S2, No murmurs Abdomen: Bowel Sounds Present, Soft, Non Tender, Non-Distended : No renal angle tenderness. No suprapubic tenderness. Extremities: No edema, Capillary Refill Less than 3 Seconds Skin: Right radial artery no hematoma or bruise. Musculoskeletal: No Tenderness to Palpation of Joints or Extremities Neurological: Cranial nerves II-XII grossly intact, DTR 2+/4 and Symmetrical, Neuro grossly intact Psych/Mental Status: Normal Affect, Appropriate. ABG / Lab / Microbiology Data Result Diagrams: 10/01/21 09:45 10/01/21 09:45 Laboratory: Laboratory Results - last 24 hr 10/01/21 09:45: WBC 6.9, RBC 4.42, Hgb 12.5, Hct 37.9, MCV 85.7, MCH 28.3, MCHC 33.0, RDW Std Deviation 42.6, RDW Coeff of Ana Laura 13.7, Plt Count 204, MPV 10.3, Immature Gran % (Auto) 0.600, Neut % (Auto) 68.5, Lymph % (Auto) 22.2, [place] % (Auto) 4.5, Eos % (Auto) 3.6, Baso % (Auto) 0.6, Absolute Neuts (auto) 4.8, Absolute Lymphs (auto) 1.54, Nucleated RBC % 0 10/01/21 09:45: Sodium 137, Potassium 4.0, Chloride 106, Carbon Dioxide 28.0, Anion Gap 3 L, BUN 20 H, Creatinine 0.71, Estim Creat Clear Calc 47.79, Est GFR (MDRD) Af Amer 106, Est GFR (MDRD) Non-Af 88, BUN/Creatinine Ratio 28.3 H, Glucose 84, Calcium 8.8 Discharge Plan Admission Admit Date/Time: 09/29/21 13:21 Primary Reason for Your Visit: Chest Pain Attending Provider: Fidel Gamez Primary Care Provider: Guillaume Bella Consulting Providers: Nehemias Bran ; Fidel Winchester ; Lokesh Broussard Instructions Patient Instructions: Cardiac Catheterization Dc, Cardiac Cath Transradial Discharge Orders/Prescriptions Prescriptions: New aspirin 81 mg Tablet,Delayed Release (Dr/Ec) 81 mg PO BREAKFAST 30 Days Qty: 30 0RF Continued multivitamin Tablet 1 tab PO DAILY celecoxib [Celebrex] 200 mg Capsule 200 mg PO DAILY tolterodine 4 mg Capsule,Extended Release 24hr 4 mg PO DAILY sucralfate 1 gram Tablet 1 g PO BID PRN PRN (Reason: Heartburn) calcium carbonate-vitamin D3 600 mg-5 mcg (200 unit) Tablet 1 tab PO DAILY omeprazole 40 mg Capsule,Delayed Release(Dr/Ec) 40 mg PO DAILY carvedilol 3.125 mg Tablet 3.125 mg PO BID Rx Instructions: must administer with a meal/food sertraline 50 mg Tablet 50 mg PO DAILY doxepin 150 mg Capsule 150 mg PO QHS Held Von 5 mg Tablet 5 mg PO BID Hold Instructions: Resume on 10/02/21. Referrals / Follow Up: Guillaume Bella MD [Primary Care Provider] - Within 2 Weeks Sree Arrieta MD [Med Staff - Active Staff] - Within 2 Weeks Disposition Disposition (needs filled in before D/C Order can be placed): Home, Self Care Charges/Coding Visit Charges Inpatient E&M: 64329 Disch Hosp
== END 2021-10-01 18:31 | disposition home or self-care (01) | DRG 287 ==
PROVIDERS: Admitting Provider Internal Medicine; PCP Family Medicine; Visit Provider Internal Medicine
DX: R07.9 Chest pain, unspecified (principal); D68.2 Hereditary deficiency of other clotting factors; I20.8 Other forms of angina pectoris; I34.1 Nonrheumatic mitral (valve) prolapse; K21.9 Gastro-esophageal reflux disease without esophagitis; F32.A Depression, unspecified; Z79.01 Long term (current) use of anticoagulants; Z79.82 Long term (current) use of aspirin; Z87.891 Personal history of nicotine dependence; R94.39 Abnormal result of other cardiovascular function study
CPT/HCPCS: 36415; 78452; 80048; 80061; 84484; 85025; 93005; 93017; 93306; 93454; 99152; 99153; A9500; J7030; J7040; Q9957; A4216; C1769; C1894; J2785; Q9967

== ENCOUNTER → 2023-11-18 | Outpatient (CLI) | payer MEDICARE, SELFPAY ==
--- NOTE | 2023-11-18 07:55 | ECHOD_ITS ---
Reason For Study: Mitral Valve Prolapse Procedure This was a 2D Doppler, Color Flow transthoracic echocardiogram. Exam performed in department. Left Ventricle Normal LV size. Left ventricular systolic function is normal. The left ventricular ejection fraction is 65 %. No regional wall motion abnormalities noted. Right Ventricle Normal RV size. Normal systolic function. Atria Normal left atrium. Normal right atrium. Mitral Valve Equivocal mitral valve prolapse. Tricuspid Valve Normal tricuspid valve. Mild (1+) tricuspid valve insufficiency. Pulmonary artery systolic pressure is 33 mmHg. Aortic Valve Trisinus/trileaflet aortic valve. Pulmonic Valve Normal pulmonic valve. Great Vessels Normal aortic root. The pulmonary artery is normal size. Inferior vena cava collapse with respiration. Pericardium/Pleural Trivial pericardial effusion. MMode/2D Measurements & Calculations LVIDd: 4.6 cm IVSd: 1.1 cm Ao root diam: 3.2 cm LVIDs: 2.9 cm LVPWd: 1.0 cm RVDd: 3.6 cm FS: 36.9 % LAV(MOD-bp): 58.8 ml LVAd ap4: 25.4 cm2 SV(MOD-sp4): 52.9 ml LAV(MOD-bp) Indexed: 29.3 ml/m2 LVLd ap4: 6.6 cm LAV(MOD-sp2): 63.3 ml EDV(MOD-sp4): 80.2 ml LAV(MOD-sp4): 52.0 ml EDV(sp4-el): 83.6 ml LVAs ap4: 12.9 cm2 LVLs ap4: 5.3 cm ESV(MOD-sp4): 27.3 ml ESV(sp4-el): 26.4 ml EF(MOD-sp4): 65.9 % EF(sp4-el): 68.5 % SV(sp4-el): 57.2 ml Ao sinus diam: 3.[address] Junction: 2.5 cm LA dimension(2D): 4.4 cm LA A4 area: 19.6 cm2 RA A4 area: 14.5 cm2 TAPSE: 1.9 cm Time Measurements MV dec time: 0.20 sec Doppler Measurements & Calculations MV E max saud: 68.9 cm/sec Lat Peak E' Saud: 9.6 cm/sec Med Peak E' Saud: 5.1 cm/sec MV A max saud: 55.3 cm/sec E/E' lat: 7.2 E/E' med: 13.5 MV E/A: 1.2 MV V2 max: 73.6 cm/sec MV P1/2t max saud: 73.5 cm/sec Ao V2 max: 137.7 cm/sec MV max P.2 mmHg MV P1/2t: 69.0 msec Ao max P.6 mmHg MV V2 mean: 35.7 cm/sec MV dec slope: 311.8 cm/sec2 Ao V2 mean: 94.6 cm/sec MV mean P.63 mmHg Ao mean P.1 mmHg MV V2 VTI: 30.2 cm MVA(P1/2t): 3.2 cm2 Ao V2 VTI: 37.4 cm AV (velocity ratio): 0.81 LV V1 max: 117.6 cm/sec MR max saud: 405.5 cm/sec PA V2 max: 78.0 cm/sec LV V1 max P.5 mmHg MR max P.8 mmHg PA max PG (full): 0.50 mmHg LV V1 mean P.8 mmHg PA V2 mean: 59.0 cm/sec LV V1 mean: 78.5 cm/sec LV V1 VTI: 30.3 cm TR max saud: 269.5 cm/sec TR max P.1 mmHg ECHO/Echo Complete Interpretation Summary The left ventricular ejection fraction is 65 %. Normal LV size. Left ventricular systolic function is normal. Equivocal mitral valve prolapse. Pulmonary artery systolic pressure is 33 mmHg. Ordering Physician: Janine Cuevas Referring Physician: Janine Cuevas Performed By: Quan Good RCS
== END | disposition home or self-care (01) ==
LOC: CVS 07:50
PROVIDERS: PCP Family Medicine; Referring Provider Nurse Practitioner Gerontology; Visit Provider Nurse Practitioner Gerontology
DX: I34.1 Nonrheumatic mitral (valve) prolapse (principal)
CPT/HCPCS: 93306

== ENCOUNTER → 2024-06-18 | Outpatient (CLI) | payer MEDICARE, SELFPAY ==
[2024-06-18 09:57] LABS: Absolute Neutrophil Count 4.6 X10^3/uL (2.0-7.7); Basophil# 0.04 X10^3/uL; Basophil% 0.6 % (0-1); Eosinophil# 0.16 X10^3/uL; Eosinophils% 2.4 % (0-5); Hematocrit 37.8 % (37-47); Hemoglobin 12.6 g/dL (12.0-15.0); Lymphocyte % 25.2 % (19-41); Mean Corp Hgb Conc 33.3 g/dL (32-36); Mean Corpuscular Hgb 30.4 pg (27.0-32.0); Mean Corpuscular Volume 91.1 fL (81-99); Mean Platelet Vol. 11.3 fl (6.2-12.0); Monocyte# 0.22 X10^3/uL; Monocyte% 3.3 % (0-10); NRBC Flagged by Analyzer 0 % (0-5); Neutrophil # 4.61 X10^3/uL (2.7-7.7); Neutrophil % 68.2 % (47-70); Platelet Count 190 K/mm3 (150-450); RBC Distribution Width CV 12.7 % (11.6-14.6); RBC Distribution Width SD 41.8 fl (35.1-43.9); Red Blood Count 4.15 M/mm3 (4.2-5.4); White Blood Count 6.8 K/mm3 (4.4-11.0)
[2024-06-18 10:59] LABS: Anion Gap 10 (5-15); BUN 15 mg/dL (4-19); BUN/Creat Ratio 19.1 RATIO (10-20); Calcium,Total 9.8 mg/dL (7.6-11.0); Carbon Dioxide 27.6 mmol/L (21.0-32.0); Chloride 104 mmol/L (98-108); Creatinine, Serum 0.76 mg/dL (0.70-1.20); EST Glomerular Filtration Rate 85 (>60); Glucose 79 mg/dL (70-99); Potassium 3.8 mmol/L (3.3-5.1); Sodium Level 142 mmol/L (133-145)
== END | disposition home or self-care (01) ==
LOC: LAB 09:02
PROVIDERS: PCP Family Medicine; Referring Provider Nurse Practitioner Gerontology; Visit Provider Nurse Practitioner Gerontology
DX: R00.2 Palpitations (principal)
CPT/HCPCS: 36415; 80048; 83735; 84443; 85025